=== PATIENT | male | born 1985 | race Caucasian/White ===

== ENCOUNTER 2019-11-23 13:38 | Emergency (ER) | payer SELFPAY ==
[2019-11-23] MEDS ORDERED: Lidocaine 1% (PF) 30 ML VIAL ONE (14:02)
--- NOTE | 2019-11-23 14:20 | RAD ---
Exam:3 views right hand HISTORY: Pain. Injury. Splinter in hand. Evaluate for foreign body. COMPARISON: None FINDINGS: No fracture, cortical irregularity or periosteal reaction. No significant soft tissue swell ing. No radiopaque foreign body. IMPRESSION: No radiopaque foreign body.
[2019-11-23] MEDS ORDERED: Adacel (T-DAP) 0.5 ML SYRINGE ONE (14:28)
[2019-11-23] MEDS ORDERED: Triple Antibiotic Oint 1 GM Packet ONE (14:58)
== END 2019-11-23 15:03 | disposition home or self-care (01) ==
LOC: NAV ERS 13:38
DX: S60.551A Superficial foreign body of right hand, initial encounter (principal); F17.210 Nicotine dependence, cigarettes, uncomplicated; W45.8XXA Other foreign body or object entering through skin, initial encounter
CPT/HCPCS: 10120; 90471; 90715; J2001